=== PATIENT | female | born 1955 | race American Indian/Alaskan Native ===

== ENCOUNTER 2017-01-02 08:40 | Emergency (ER) | payer SELFPAY ==
[2017-01-02] MEDS: FLEXERIL PO ONE (13:46)
[2017-01-02] MEDS: MOTRIN PO ONE (13:46)
[2017-01-02] MEDS ORDERED: TORADOL ONE (13:47)
[2017-01-02] MEDS ORDERED: APRESOLINE ONE (13:49)
[2017-01-02] MEDS: TORADOL IM ONE (13:54)
[2017-01-02] MEDS: APRESOLINE PO ONE ×3 (13:56→15:02)
[2017-01-02 15:03] VITALS: BP 151/97
--- NOTE | 2017-01-02 21:02 | Emergency Department Report ---
Entered by ILA ROBLES, acting as scribe for ANITA CLARK PA. ED Back Pain/Injury HPI - General Chief Complaint: Back Pain/Injury Stated Complaint: BACK PAIN/NO INJURY Time Seen by Provider: 01/02/17 12:52 Source: patient Limitations: No Limitations - History of Present Illness Initial Comments: 61 year old female with PMHx of Sciatic presents to ED with c/o lower chronic back pain for 3 days. Patient states while working, she helped someone lift an object and injured her back. Patient states describes as aching and radiates to right side of her leg. Patient denies trauma, numbness, tingling, headache, chest pain, and SOB. Patient notes she took Ibuprofen with mild relief. NKDA. RIZO Complaint: back pain, back injury -: days(s) (3) Similar Symptoms Previously: Yes (chronic back pain) Place: work Radiation: right leg Severity: moderate Severity scale (0 -10): 4 Quality: aching Consistency: constant Improves With: none Worsens With: movement Context: while lifting Associated Symptoms: denies other symptoms. denies: confusion, weakness, chest pain, numbness, difficulty walking, cough, fever/chills, headaches, abdominal pain, nausea/vomiting, rash - Related Data Previous Rx's Medication Instructions Recorded Last Taken Type Acetaminophen/Codeine 1 tab PO Q6H PRN #14 tab 04/30/14 Unknown Rx [Acetaminophen-Codeine #3 TAB] Promethazine [Phenergan] 25 mg PO Q6H PRN #14 tablet 04/30/14 Unknown Rx Acetaminophen/Codeine [Tylenol #3] 1 tab PO Q4HR PRN #15 tablet 04/05/15 Unknown Rx Ibuprofen [Motrin 600 MG tab] 600 mg PO Q8H PRN #15 tablet 04/05/15 Unknown Rx traMADol [Ultram 50 MG tab] 50 mg PO Q6HR PRN #30 tablet 04/26/16 Unknown Rx Cyclobenzaprine [Flexeril 10 MG 10 mg PO TID PRN #24 tablet 01/02/17 Unknown Rx TAB] Diclofenac Dr (Nf) 50 mg PO BID #30 tablet. 01/02/17 Unknown Rx Allergies Allergy/AdvReac Type Severity Reaction Status Date / Time No Known Allergies Allergy Verified 01/02/17 09:06 ED Review of Systems Comment: All other systems reviewed and negative Constitutional: denies: chills, fever Respiratory: denies: cough, shortness of breath, wheezing Cardiovascular: denies: chest pain, palpitations Gastrointestinal: denies: abdominal pain, nausea, vomiting, diarrhea Musculoskeletal: back pain. denies: joint swelling, arthralgia Skin: denies: rash, lesions Neurological: denies: headache, weakness, numbness, paresthesias ED Past Medical Hx - Past Medical History Previous Medical History?: No - Surgical History Past Surgical History?: No - Social History Smoking Status: Never Smoker - Medications Home Medications: Home Medications Medication Instructions Recorded Confirmed Last Taken Type Acetaminophen/Codeine 1 tab PO Q6H PRN #14 tab 04/30/14 Unknown Rx [Acetaminophen-Codeine #3 TAB] Promethazine [Phenergan] 25 mg PO Q6H PRN #14 tablet 04/30/14 Unknown Rx Acetaminophen/Codeine [Tylenol #3] 1 tab PO Q4HR PRN #15 tablet 04/05/15 Unknown Rx Ibuprofen [Motrin 600 MG tab] 600 mg PO Q8H PRN #15 tablet 04/05/15 Unknown Rx traMADol [Ultram 50 MG tab] 50 mg PO Q6HR PRN #30 tablet 04/26/16 Unknown Rx Cyclobenzaprine [Flexeril 10 MG 10 mg PO TID PRN #24 tablet 01/02/17 Unknown Rx TAB] Diclofenac Dr (Nf) 50 mg PO BID #30 tablet.dr 01/02/17 Unknown Rx ED Physical Exam - Other Other exam information: GENERAL: Patient is alert and oriented x 3. No apparent distress, normal gait, atraumatic. HEAD: Head is normocephalic and atraumatic. ABDOMEN: Nontender to palpation on all quadrants. No organomegaly was noted. Positive bowel sounds. No CVA tenderness. BACK: normal inspection, spinal tenderness. FROM. Positive right straight leg raise. NECK: Supple. Non edematous, no carotid bruits. No lymphadenopathy or thyromegaly. BREAST: Symmetrical. Supple bilaterally, No Masses, lumps, lesions, ulcerations. LUNGS: Symmetrical with respiration, no wheezing, no rales, no crackles, CTAB HEART: Regular rate and rhythm with normal S1/S2 present. No murmurs, rubs, or gallops. ABDOMEN: Soft, nondistended. No pulsatile mass. Nontender to palpation on all quadrants. No organomegaly was noted. Positive bowel sounds. No CVA tenderness. EXTREMITIES/MUSCULOSKELETAL: No cyanosis, clubbing, rash, lesions or edema. Full ROM bilaterally. UE/LE Pulses 2+ bilaterally. LE and UE 5+ strength bilaterally SKIN: Warm and dry. No lesions, ulceration or induration present NEUROLOGIC: No focal deficit., Cranial nerves II - XII are grossly intact. No loss of sensation. No facial droop. PSYCHIATRIC: Mood is congruent with affect. Denies suicidal or homicidal ideations ED Course Vital Signs 01/02/17 01/02/17 01/02/17 09:07 13:56 14:02 Temperature 98.5 F Pulse Rate 66 62 62 Respiratory 18 Rate Blood Pressure 150/101 182/93 182/93 Blood Pressure [Left] O2 Sat by Pulse 100 Oximetry 01/02/17 01/02/17 14:05 15:03 Temperature Pulse Rate 62 75 Respiratory 20 16 Rate Blood Pressure Blood Pressure 182/93 151/97 [Left] O2 Sat by Pulse 97 95 Oximetry ED Medical Decision Making - Medical Decision Making 61-year-old female present with lumbar radiculopathy ED course: Patient received Toradol in ed. Pressure mildly elevated patient has no history of blood pressure 25 mg of hydralazineprior to discharge. Blood pressure reduced prior to discharge She states she takes no medication for blood pressure. She is asymptomatic in the ED. Was given hydralazine to reduce her pressure patient will follow up with primary care physician for blood pressure management. Vital signs are normal she is in no acute distress. Patient is alert and oriented 3 she understands instructions given. ED Disposition Clinical Impression: Lumbar pain with radiation down right leg Disposition: DC-01 TO HOME OR SELFCARE Is pt being admited?: No Does the pt Need Aspirin: No Condition: Stable Instructions: Lumbar Radiculopathy (ED), Arthralgia (ED) Additional Instructions: Drink plenty of fluids, rest, no heavy lifting, apply heat pad 3 times a day Prescriptions: Cyclobenzaprine [Flexeril 10 MG TAB] 10 mg PO TID PRN #24 tablet PRN Reason: Muscle Spasm Diclofenac Dr (Nf) 50 mg PO BID #30 tablet. Referrals: PRIMARY CARE, [Primary Care Provider] - 3-5 Days [facility] [Outside] - 3-5 Days [facility] [Outside] - 3-5 Days [facility] [Outside] - 3-5 Days Forms: Work/School Release Form(ED) Time of Disposition: 13:31 This documentation as recorded by the MARGARET breaux PEARL,accurately reflects the service I personally performed and the decisions made by ,ANITA CLARK PA.
== END 2017-01-02 15:05 | disposition home or self-care (01) ==
LOC: ED 08:40
DX: G89.29 Other chronic pain (principal); M54.5 Low back pain
CPT/HCPCS: 96372; 99282; J1885

== ENCOUNTER 2017-10-18 21:01 | Emergency (ER) | payer SELFPAY ==
[2017-10-18 21:39] VITALS: BP 160/101
[2017-10-18] MEDS: CATAPRES PO ONE (22:06)
== END 2017-10-19 01:10 | disposition left against medical advice (07) ==
LOC: ED 21:01
DX: M54.9 Dorsalgia, unspecified (principal); Z53.21 Procedure and treatment not carried out due to patient leaving prior to being seen by health care provider